=== PATIENT | female | born 1970 | race Caucasian/White ===

== ENCOUNTER 2018-06-12 00:10 | Outpatient (CLI) | payer MEDICAID, SELFPAY ==
--- NOTE | 2018-06-12 11:25 | DI.MAMMO_ITS ---
SYMPTOMS/DIAGNOSIS: SCREENING, Z12.31, [facility], Z00.00 MAMMOGRAMS: Mammograms were interpreted according to the usual protocol including computer analysis with CAD system, tomosynthesis and C view imaging. Comparison is with the prior examinations. No masses or microcalcifications are seen. There is nothing to suggest malignancy. IMPRESSION: Negative mammogram. Routine screening is recommended. Category 1 , breast density B. SA ASSESSMENT OF FINDINGS: Negative. Category 1. Patient will receive a letter notifying them of these results. BI-RADS category B. There are scattered areas of fibroglandular density.
== END 2018-06-12 00:30 ==
PROVIDERS: PCP Nurse Practitioner Family; Visit Provider Nurse Practitioner Family
DX: Z12.31 Encounter for screening mammogram for malignant neoplasm of breast (principal)
CPT/HCPCS: 77063; 77067

== ENCOUNTER 2018-07-17 16:41 | Outpatient (REF) | payer MEDICAID, SELFPAY ==
[2018-07-17 18:30] LABS: HCT 44.7 % (36.0-46.0); HGB 15.1 g/dL (12.0-15.5); Mean Corp. HGB Concentration 33.8 g/dL (32.0-36.0); Mean Corpuscular Hemoglobin 31.1 pg (27.0-33.0); Platelet Count 346 x1000/uL (130-400); RBC 4.86 m/cumm (4.00-5.20); RBC Distribution Width 12.8 % (11.7-14.6); White Blood Cell Count 8.46 k/cumm (4.4-10.8)
[2018-07-17 19:56] LABS: ALT 39 U/L (12-78); AST 22 U/L (15-37); Albumin 4.2 g/dL (3.4-5.0); Alkaline Phosphatase 59 U/L (46-116); Anion Gap 11.6 mmol/L (3-11); BUN 16 mg/dL (7-18); Bilirubin, Total 0.3 mg/dL (0.2-1.0); CO2 26.4 mmol/L (21.0-32.0); CREATININE 1.22 mg/dL (0.55-1.02); Calcium 9.5 mg/dL (8.5-10.1); Chloride 101 mmol/L (98-107); Estimated GFR 47.04 (mL/min/1.73m2); Glucose 86 mg/dL (70-100); Potassium 4.4 mmol/L (3.5-5.1); Sodium 139 mmol/L (136-145); TSH (W/Ref FT4) 2.31 uIU/mL (0.358-3.74); Total Protein 7.7 g/dL (6.4-8.2); Vitamin B12 356 pg/mL (193-986)
[2018-07-20 14:50] LABS: 25-Hydroxy D Total 15 ng/mL; 25-Hydroxy D2 <4.0 ng/mL; 25-Hydroxy D3 15 ng/mL
== END 2018-07-17 17:01 ==
LOC: NCHCN 16:41
PROVIDERS: PCP Nurse Practitioner Family; Visit Provider Nurse Practitioner Family
DX: I10 Essential (primary) hypertension (principal); Z68.37 Body mass index [BMI] 37.0-37.9, adult; F43.23 Adjustment disorder with mixed anxiety and depressed mood; Z72.51 High risk heterosexual behavior; Z60.8 Other problems related to social environment
CPT/HCPCS: 80053; 82306; 85027; 82607; 84443

== ENCOUNTER 2018-12-05 12:06 | Outpatient (CLI) | payer MEDICAID, SELFPAY ==
[2018-12-05 13:18] LABS: Anion Gap 10.5 mmol/L (3-11); BUN 13 mg/dL (7-18); CO2 26.5 mmol/L (21.0-32.0); CREATININE 1.16 mg/dL (0.55-1.02); Calcium 9.9 mg/dL (8.5-10.1); Chloride 100 mmol/L (98-107); Estimated GFR 49.86 (mL/min/1.73m2); Glucose 67 mg/dL (70-100); Potassium 4.1 mmol/L (3.5-5.1); Sodium 137 mmol/L (136-145)
== END 2018-12-05 12:26 ==
PROVIDERS: PCP Nurse Practitioner Family; Visit Provider Nurse Practitioner Family
DX: I10 Essential (primary) hypertension (principal)
CPT/HCPCS: 36415; 80048

== ENCOUNTER 2019-08-09 14:18 | Outpatient (REF) | payer MEDICAID, SELFPAY ==
[2019-08-12 11:12] LABS: Vitamin D 25 Total 13.7 ng/ml (30-100)
[2019-08-13 10:52] LABS: Calculated LDL 86 mg/dL; Cholesterol 143 mg/dL (<200); HDL Cholesterol 38 mg/dL (40-60); Triglyceride 98 mg/dL (<150)
[2019-08-15 10:39] LABS: BUN 15 mg/dL (10-26); CO2 Total 27 mEq/L (22-32); Chloride 99 mEq/dL (96-110); Glucose 83 mg/dL (70-100); Sodium 139 mEq/L (136-145); Total Protein 8.3 g/dL (6.3-8.2)
[2019-08-15 10:40] LABS: ALT 37 U/L (<35); AST 32 U/L (15-46); Alkaline Phosphatase 65 U/L (38-126); Bilirubin, Total < 0.50 mg/dL (<1.4); Calcium 10.2 mg/dL (8.5-10.5)
[2019-08-15 10:41] LABS: eGFR 65 (>60)
[2019-08-15 10:42] LABS: Potassium 3.9 mEq/L (3.5-5.0)
== END 2019-08-09 14:38 ==
LOC: NCHCN 14:18
PROVIDERS: PCP Nurse Practitioner Family; Visit Provider Nurse Practitioner Family
DX: E55.9 Vitamin D deficiency, unspecified (principal); I10 Essential (primary) hypertension; Z68.37 Body mass index [BMI] 37.0-37.9, adult; Z51.81 Encounter for therapeutic drug level monitoring
CPT/HCPCS: 80053; 80061; 82306; 85027

== ENCOUNTER 2021-01-08 10:34 | Outpatient (REF) | payer MEDICAID, SELFPAY ==
--- NOTE | 2021-01-08 09:00 | PAPFT_PTH ---
PATIENT: Janet Nielsen LOC: [facility]#:[id number] AGE/SX: 50/F ROOM: RE01/08/[address]: Felipe Adames : 1970 BED: DIS: 01/08/2021 SPEC #: [id number] RECD: 01/08/21 17:57 STATUS: HEIDI REMichael #: [id number] SUJEY: 01/08/21 09:[address]: Felipe Adames DEPT: [facility] Cytology RECD BY: Matilde Araujo ENTERED: 01/08/21 17:57 SP TYPE: PAPFT OTHR DR: Yvette Solomon Tissues: 1 - CX/ENDOCX FOR PAP SMEARS Procedures: PAP THIN PREP/[facility] Screening HPV DNA PROBE Comments: [id number]
== END 2021-01-08 10:35 | disposition home or self-care (01) ==
LOC: NCHCN 10:34
PROVIDERS: PCP Nurse Practitioner Family; Visit Provider Nurse Practitioner Family
DX: Z12.4 Encounter for screening for malignant neoplasm of cervix (principal); Z11.51 Encounter for screening for human papillomavirus (HPV); R87.612 Low grade squamous intraepithelial lesion on cytologic smear of cervix (LGSIL); R87.810 Cervical high risk human papillomavirus (HPV) DNA test positive
CPT/HCPCS: 88142; 87624

== ENCOUNTER 2021-03-01 09:01 | Outpatient (REF) | payer MEDICAID, SELFPAY ==
--- NOTE | 2021-03-01 08:40 | ENDO_PTH ---
PATIENT: Janet Nielsen LOC: N U#:[id number] AGE/SX: 50/F ROOM: RE03/01/[address]: Mitzy Hamm DO : 1970 BED: DIS: 03/01/2021 SPEC #: [id number] RECD: 03/01/21 12:57 STATUS: HEIDI REQ #: [id number] SUJEY: 03/01/21 08:[address]: Mitzy Hamm DEPT: Surgical Specimen RECD BY: Matilde Araujo ENTERED: 03/01/21 12:58 SP TYPE: Endo OTHR DR: Yvette Solomon Tissues: 1 - ENDOCERVICAL BX/CURRETTE 2 - CERVICAL BIOPSY Procedures: GROSS AND MICRO LEVEL 4 P16 IPEX Comments: [id number]
== END 2021-03-01 09:02 | disposition home or self-care (01) ==
LOC: LBN 09:01
PROVIDERS: PCP Nurse Practitioner Family; Visit Provider Obstetrics & Gynecology
DX: N87.1 Moderate cervical dysplasia (principal); R87.810 Cervical high risk human papillomavirus (HPV) DNA test positive
CPT/HCPCS: 88305; 88342

== ENCOUNTER 2021-07-29 09:44 | Outpatient (REF) | payer MEDICAID, SELFPAY ==
--- NOTE | 2021-07-29 09:00 | CER_PTH ---
PATIENT: Janet Nielsne LOC: N U#:[id number] AGE/SX: 51/F ROOM: RE07/29/[address]: Mitzy Hamm DO : 1970 BED: DIS: 07/29/2021 SPEC #: [id number] RECD: 07/29/21 18:16 STATUS: HEIDI REQ #: [id number] SUJEY: 07/29/21 09:[address]: Mitzy Hamm DEPT: Surgical Specimen RECD BY: Matilde Araujo ENTERED: 07/29/21 18:17 SP TYPE: CER OTHR DR: Yvette Solomon Tissues: 1 - CERVICAL LEEP/LOOP Procedures: GROSS AND MICRO LEVEL 5 Comments: [id number]
== END 2021-07-29 09:45 | disposition home or self-care (01) ==
LOC: LBN 09:44
PROVIDERS: PCP Nurse Practitioner Family; Visit Provider Obstetrics & Gynecology
DX: N87.1 Moderate cervical dysplasia (principal)
CPT/HCPCS: 88307